=== PATIENT | male | born 1965 | race African-American/Black ===

== ENCOUNTER 2016-06-17 17:06 | Emergency (ER) | payer MEDICARE, OTHER ==
[~2016-06-17] VITALS: Ht 177.8 cm; Wt 60.9 kg
[~2016-06-17 17:06] MED LIST: ACET-2247 PO; ALBU8.5H IH; ATOR10TA84 PO; CINA30 PO; CLON0.3T PO; DOXA2TAB PO; HYDR-4174 PO; LABE200T PO; LEVO500 PO; NIFE90TA38 PO; OXYC-158 PO; SEVEC800 PO
[2016-06-17 17:31] LABS: EOSINOPHILS % (AUTO) 0.9 % (1.0-6.0); HEMOGLOBIN 11.9 g/dL (13.5-17.5); LYMPHOCYTES # (AUTO) 0.3 K/uL (1.0-4.8); LYMPHOCYTES % (AUTO) 3.1 % (22.0-44.0); MEAN CORPUSCULAR HEMOGLOBIN 29.8 pg (26.0-34.0); MEAN CORPUSCULAR HGB CONC 32.1 G/dL (31.0-37.0); MEAN CORPUSCULAR VOLUME 93 fL (80-100); MONOCYTES # (AUTO) 0.8 K/uL (0.1-1.0); MONOCYTES % (AUTO) 7.9 % (2.0-9.0); NEUTROPHILS # (AUTO) 8.8 K/uL (1.8-7.7); PLATELET COUNT (AUTO) 229 K/uL (150-450); RED BLOOD CELL COUNT(AUTO) 3.98 MIL/uL (4.50-5.90); RED CELL DISTRIBUTION WIDTH 17.2 % (11.5-14.5)
[2016-06-17 17:33] LABS: NEUTROPHILS % (AUTO) 88.1 % (40.0-70.0)
[2016-06-17 17:42] LABS: CALCIUM, TOTAL 9.1 mg/dL (8.8-10.5); CREATININE 13.81 mg/dL (0.60-1.30)
[2016-06-17 17:54] LABS: RBC MORPHOLOGY COMMENT ABNORMAL RBC MORPH
[2016-06-17 17:58] LABS: ALBUMIN 3.7 g/dL (3.4-5.0); BILIRUBIN,TOTAL 0.8 mg/dL (0.1-1.0)
[2016-06-17] MEDS ORDERED: SODIUM BICARBONATE [ADULT] 8.4% 50 MEQ/50 ML SYRINGE IVP ONE (18:45)
[2016-06-17] MEDS ORDERED: DEXTROSE 50%-WATER 25 GM/50 ML SYRINGE IVP ONE (18:45)
[2016-06-17] MEDS ORDERED: INSULIN REGULAR, HUMAN 100 UNITS/ML IVP ONE (18:45)
[2016-06-17] MEDS ORDERED: CALCIUM GLUCONATE 1,000 MG in DEXTROSE 5%-WATER 50 ML IV ONE (18:45)
[2016-06-17 19:45] VITALS: BP 124/74
[2016-06-17] MEDS ORDERED: OSELTAMIVIR PHOSPHATE 75 MG CAPSULE PO ONE (19:45)
== END 2016-06-17 20:38 | disposition home or self-care (01) ==
LOC: EMS 17:12
DX: E11.22 Type 2 diabetes mellitus with diabetic chronic kidney disease (principal); I13.2 Hypertensive heart and chronic kidney disease with heart failure and with stage 5 chronic kidney disease, or end stage renal disease; N18.6 End stage renal disease; I50.9 Heart failure, unspecified; E87.5 Hyperkalemia; E78.00 Pure hypercholesterolemia, unspecified; Z99.2 Dependence on renal dialysis; Z88.8 Allergy status to other drugs, medicaments and biological substances
CPT/HCPCS: 36415; 71010; 80053; 83880; 84484; 85025; 93005; 96374; 96375; 99285; J0610; J1815; J3490; J7060